=== PATIENT | female | born 1960 | race Caucasian/White ===

== ENCOUNTER → 2017-08-15 | Outpatient (CLI) | payer BC ==
[~2017-08-15] MED LIST: ALBUTEROL SULF8.5 GM IH; ALLEGRA ALLERG180 MG PO; ASPIRIN325 MG PO; ASPIRIN81 M2 PO; CLOPIDOGREL75 MG PO; ESTRACE1 MG PO; GLUCOSAMINE/1 TABLET PO; IBUPROFEN600 MG PO; IMITREX50 MG PO; MOTRIN800 MG PO; MUCINEX1200 MG PO; MULTIPLE VITAM1 EACH PO; NASONEX17 GM BOTH NARES; SELENIUM100 MICROG PO; SENNA S TABLET1 EACH PO; TRAMADOL HCL50 MG PO; TREXIMET 85-1 TABLET PO; ZOLOFT100 MG PO
== END | disposition home or self-care (01) ==
LOC: RAD 12:17
DX: R60.0 Localized edema (principal)
CPT/HCPCS: 93971